=== PATIENT | male | born 1985 | race Caucasian/White ===

== ENCOUNTER 2022-04-10 11:51 | Emergency (ER) | payer OTHER ==
[2022-04-10 13:27] LABS: BILIRUBIN 3+ mg/dL (NEGATIVE); BLOOD TRACE-INTACT Ery/uL (NEGATIVE); GLUCOSE (U) TRACE mg/dL (NORMAL); LEUKOCYTES TRACE Leu/uL (NEGATIVE); NITRITE POSITIVE (NEGATIVE); PROTEIN 3+ mg/dL (NEGATIVE); SPECIFIC GRAVITY 1.025 (1.001-1.030); UROBILINOGEN >=8.0 mg/dL (0.2-1.0); pH 6.5 (5.0-9.0)
[2022-04-10 14:01] LABS: ALBUMIN 3.4 g/dL (3.4-5.0); BILIRUBIN - TOTAL 2.8 mg/dL (0.2-1.0); BUN/CREAT RATIO (CALC) 14.6 RATIO; CREATININE 1.03 mg/dL (0.67-1.17); GLOBULIN (CALCULATION) 3.4 g/dL; POTASSIUM 3.7 mmol/L (3.5-5.1); TOTAL PROTEIN 6.8 g/dL (6.4-8.2)
[2022-04-10 14:07] LABS: CLARITY HAZY (CLEAR); COLOR BROWN (YELLOW)
[2022-04-10 14:16] LABS: HCT 34.6 % (42.0-52.0); HGB 11.9 g/dl (13.2-18.0); MCH 35.6 pg (25.0-31.0); MCHC 34.4 g/dL (32.0-36.0); MCV 103.6 fL (78.0-100.0); RBC 3.34 M/uL (4.70-6.00); WBC 0.8 K/uL (4.0-10.5)
[2022-04-10 14:17] LABS: RDW 13.2 % (11.5-14.0)
[2022-04-10 14:18] LABS: BASOPHIL 1.2 % (0-2); EOSINOPHIL 1.2 % (0-5); LYMPHOCYTE 42.2 % (15-48); MONOCYTE 7.2 % (0-12); NEUTROPHIL 45.8 % (41-80); PLT 51 K/uL (150-400)
[2022-04-10 14:19] LABS: NRBC 0
[2022-04-10 14:25] LABS: MUCOUS MODERATE
[2022-04-10 14:28] LABS: BACTERIA TRACE; URINARY RBC RARE
[2022-04-10 14:29] LABS: AMORPHOUS URATES CRYSTALS TRACE
[2022-04-10 14:54] LABS: AMYLASE 45 U/L (25-115); LIPASE 190 U/L (73-393)
[2022-04-10 16:07] LABS: LACTIC ACID 1.5 mmol/L (0.4-1.9)
[2022-04-10] MEDS ORDERED: VIBRAMYCIN100 MG PO (17:14)
[2022-04-12 15:07] LABS: LYME TOTAL ANTIBODY EIA Negative (Negative)
== END 2022-04-10 17:55 | disposition home or self-care (01) ==
LOC: FER 11:51
PROVIDERS: Nurse Practitioner Family
DX: D70.9 Neutropenia, unspecified (principal); T14.8XXA Other injury of unspecified body region, initial encounter; R10.31 Right lower quadrant pain; R10.32 Left lower quadrant pain; W57.XXXA Bitten or stung by nonvenomous insect and other nonvenomous arthropods, initial encounter
CPT/HCPCS: 36415; 71045; 80053; 81001; 82150; 83605; 83690; 84145; 85025; 86618; 87040; 87088; J7030

== ENCOUNTER 2022-04-10 23:43 | Emergency (ER) | payer OTHER ==
[~2022-04-10 23:43] MED LIST: VIBRAMYCIN100 MG PO
[2022-04-11 00:32] LABS: BASOPHIL 0.9 % (0-2); EOSINOPHIL 0.9 % (0-5); HCT 30.8 % (42.0-52.0); LYMPHOCYTE 49.1 % (15-48); MCH 35.9 pg (25.0-31.0); MCHC 35.7 g/dL (32.0-36.0); MCV 100.7 fL (78.0-100.0); MONOCYTE 10.5 % (0-12); NEUTROPHIL 37.7 % (41-80); NRBC 0; PLT 50 K/uL (150-400); RBC 3.06 M/uL (4.70-6.00); RDW 13.1 % (11.5-14.0)
[2022-04-11 00:35] LABS: WBC 1.1 K/uL (4.0-10.5)
[2022-04-11 00:46] LABS: ALBUMIN 3.1 g/dL (3.4-5.0); BILIRUBIN - TOTAL 2.9 mg/dL (0.2-1.0); CREATININE 0.92 mg/dL (0.67-1.17); GLOBULIN (CALCULATION) 3.2 g/dL; MAGNESIUM 1.6 mg/dL (1.8-2.4); POTASSIUM 3.4 mmol/L (3.5-5.1); TOTAL PROTEIN 6.3 g/dL (6.4-8.2)
[2022-04-11 01:15] LABS: CORONAVIRUS 2019 SARS-COV-2 NEGATIVE (NEGATIVE); INFLUENZA A NAA NEGATIVE (NEGATIVE)
== END 2022-04-11 07:00 | disposition other institution (70) ==
LOC: FER 23:43
PROVIDERS: Internal Medicine
DX: N39.0 Urinary tract infection, site not specified (principal); D72.819 Decreased white blood cell count, unspecified; R74.01 Elevation of levels of liver transaminase levels; J44.9 Chronic obstructive pulmonary disease, unspecified; G40.909 Epilepsy, unspecified, not intractable, without status epilepticus; Z79.899 Other long term (current) drug therapy; Z20.822 Contact with and (suspected) exposure to COVID-19
CPT/HCPCS: 36415; 80053; 83605; 83690; 83735; 84145; 85025; 87040; J1100; J2543; J7120; Q9967; U0002